=== PATIENT | female | born 1990 | race Caucasian/White ===

== ENCOUNTER 2018-05-20 08:08 | Emergency (ER) | payer OTHER ==
[~2018-05-20] VITALS: Ht 157.5 cm; Wt 127.0 kg
[~2018-05-20 08:08] MED LIST: AMOX250 PO; AMOX500 PO; BCP; CEPH500 PO; CETI5 PO; CODACE30 PO; DICLEGIS DR 101 EACH PO; DIPH50 PO; ESCI10; EXCEDRIN; HYDACE5 PO; HYDPAM25; IBUPROFEN; LORA1 PO; MECL12.5 PO; NAPR500 PO; Norco 5-325 Ta1 EACH PO; OMEPRAZOLE MAGN20 MG PO; Omeprazole20 M1 PO; PARO12.5; PENVK500 PO; PHENA200 PO; PRENATAL VITAM1 EAC2 PO; PROM25 PO; Permethrin60 GM TP; Pseudoephedrine30 MG PO; RANI150; RANI150 PO; RXAMOX500 PO; RXNAPNA550 PO; RXPHEN200 PO; RXSULTRIDS PO; SERT100 PO; SERT50 PO; SULTRIDS PO; TRAZ50; TYLECOD3 PO; Tylenol325 MG PO; VARE1; Zofran Odt4 MG SL
[2018-05-20] MEDS ORDERED: HYDHCL25 PO (08:21)
[2018-05-20] MEDS ORDERED: BACL10 PO (08:22)
[2018-05-20] MEDS ORDERED: ORACONB PO (08:23)
[2018-05-20] MEDS ORDERED: MELO7.5 PO (08:24)
[2018-05-20] MEDS ORDERED: Prozac20 MG PO (08:26)
[2018-05-20] MEDS ORDERED: Ultram50 MG PO (08:40)
[2018-05-20] MEDS ORDERED: Veetids 500500 MG PO (08:40)
== END 2018-05-20 09:10 | disposition home or self-care (01) ==
LOC: ER 08:08
DX: K02.9 Dental caries, unspecified (principal); F17.200 Nicotine dependence, unspecified, uncomplicated
CPT/HCPCS: 99282

== ENCOUNTER → 2018-08-18 | Outpatient (CLI) | payer OTHER ==
[~2018-08-18] MED LIST changes: +BACL10 PO; +HYDHCL25 PO; +MELO7.5 PO; +ORACONB PO; +Prozac20 MG PO; +Ultram50 MG PO; +Veetids 500500 MG PO
[2018-08-18 17:11] LABS: Bilirubin, Urine Neg (Neg); Blood, Urine Neg (Neg); Glucose Qualitative, Urine Neg (Neg); Ketones, Urine Neg (Neg); Leukocyte Esterase, Urine Neg (Neg); Nitrite, Urine Neg (Neg); Protein, Urine 1+ (Neg); Urobilinogen, Urine NORM (Normal)
[2018-08-18 17:23] LABS: U Amphetamine Screen Not Detected; U Barbituate Screen Not Detected; U Benzodiazapine Screen Not Detected; U Buprenorphine Screen Not Detected; U Cannabinoids Screen Not Detected; U Cocaine Screen Not Detected; U Methadone Screen Not Detected; U Methamphetamine Screen Not Detected; U Opiates Screen Not Detected; U Oxycodone Screen Not Detected; U Phencyclidine Screen Not Detected; U Propoxyphene Screen Not Detected
[2018-08-18 17:26] LABS: Appearance, Urine Clear (Clear); Color, Urine Yellow (P-Yellow)
== END | disposition home or self-care (01) ==
LOC: LAB SHORT 16:38 → LAB 16:38
PROVIDERS: Obstetrics & Gynecology
DX: O09.90 Supervision of high risk pregnancy, unspecified, unspecified trimester (principal)
CPT/HCPCS: 87086

== ENCOUNTER 2018-08-21 19:18 | Emergency (ER) | payer OTHER ==
[~2018-08-21] VITALS: Ht 157.5 cm; Wt 127.0 kg
[2018-08-21 19:49] LABS: BASOPHILS ABSOLUTE AUTO 0.03 K/mm3 (0.00-0.23); BASOPHILS PERCENT AUTO 0 % (0-2); EOSINOPHILS ABSOLUTE AUTO 0.07 K/mm3 (0.00-0.68); EOSINOPHILS PERCENT AUTO 1 % (0-6); Hematocrit 43.1 % (33.0-51.0); Hemoglobin 13.8 g/dL (11.5-16.0); IMMATURE GRAN ABSOLUTE AUTO 0.08 K/mm3 (0.00-0.10); IMMATURE GRAN PERCENT AUTO 1 % (0-1); LYMPHOCYTES ABSOLUTE AUTO 3.54 K/mm3 (0.84-5.20); LYMPHOCYTES PERCENT AUTO 26 % (21-46); MONOCYTES ABSOLUTE AUTO 0.72 K/mm3 (0.16-1.47); MONOCYTES PERCENT AUTO 5 % (4-13); Mean Corpuscular HGB 28.7 pg (26.0-34.0); Mean Corpuscular Volume 90 fL (80-100); Mean Platelet Volume 9.4 fL (9.1-12.4); NEUTROPHILS ABSOLUTE AUTO 9.43 K/mm3 (1.96-9.15); NEUTROPHILS PERCENT AUTO 68 % (41-73); Platelet Count 275 K/mm3 (150-400); RDW Coefficient Variation 13.2 % (11.7-14.2); RDW Standard Deviation 43.2 fL (35.1-46.3); Red Blood Cell Count 4.81 M/mm3 (3.80-5.20); White Blood Cell Count 13.87 K/mm3 (4.00-11.30)
[2018-08-21 20:18] LABS: Alanine Aminotransfer (ALT/SGP 19 U/L (12-78); Albumin, Blood 3.3 g/dL (3.4-5.0); Albumin/Globulin Ratio 0.7 (0.8-1.8); Alk Phos 59 U/L (50-136); Anion Gap 8 mmol/L (6-16); Aspartate Aminotrans (AST/SGOT 18 U/L (12-37); Bilirubin, Total 0.1 mg/dL (0.1-1.0); Blood Urea Nitrogen 8 mg/dL (8-24); CO2, Blood 22 mmol/L (21-32); Calcium, Blood 9.1 mg/dL (8.5-10.1); Chloride, Blood 105 mmol/L (98-108); Globulin, Blood 4.5 g/dL (2.2-4.0); Glomerular Filtration Rate >60 (60-); Glucose, Blood 78 mg/dL (70-99); Potassium, Blood 3.5 mmol/L (3.5-5.5); Sodium, Blood 135 mmol/L (136-145); Total Protein, Blood 7.8 g/dL (6.4-8.2)
[2018-08-21 20:30] LABS: Beta HCG, Quantitative, Serum 124159 mIU/mL (0-3)
== END 2018-08-21 22:15 | disposition home or self-care (01) ==
LOC: ER 19:18
PROVIDERS: Physician Assistant
DX: O20.0 Threatened abortion (principal); Z3A.08 8 weeks gestation of pregnancy; Z88.2 Allergy status to sulfonamides; Z88.1 Allergy status to other antibiotic agents; Z88.5 Allergy status to narcotic agent; Z88.8 Allergy status to other drugs, medicaments and biological substances; Z79.899 Other long term (current) drug therapy; O99.331 Smoking (tobacco) complicating pregnancy, first trimester; F17.200 Nicotine dependence, unspecified, uncomplicated
CPT/HCPCS: 36415; 76801; 80053; 84702; 85025; 99284-25

== ENCOUNTER 2019-03-10 15:29 | Inpatient (IN) | payer OTHER ==
[~2019-03-10] VITALS: Ht 157.5 cm; Wt 148.3 kg
[2019-03-10] MEDS ORDERED: EXPECTA PRENAT1 EACH (15:51)
[2019-03-10] MEDS ORDERED: NITR100CA (15:51)
[2019-03-10] MEDS ORDERED: UNISOM25 MG (15:51)
[2019-03-10] MEDS ORDERED: HEALTHY HEART1 EACH (15:52)
[2019-03-10 17:08] LABS: BASOPHILS ABSOLUTE AUTO 0.03 K/mm3 (0.00-0.23); BASOPHILS PERCENT AUTO 0 % (0-2); EOSINOPHILS ABSOLUTE AUTO 0.08 K/mm3 (0.00-0.68); EOSINOPHILS PERCENT AUTO 1 % (0-6); Hematocrit 35.4 % (33.0-51.0); Hemoglobin 11.3 g/dL (11.5-16.0); IMMATURE GRAN ABSOLUTE AUTO 0.06 K/mm3 (0.00-0.10); IMMATURE GRAN PERCENT AUTO 1 % (0-1); LYMPHOCYTES ABSOLUTE AUTO 2.68 K/mm3 (0.84-5.20); LYMPHOCYTES PERCENT AUTO 29 % (21-46); MONOCYTES ABSOLUTE AUTO 0.58 K/mm3 (0.16-1.47); MONOCYTES PERCENT AUTO 6 % (4-13); Mean Corpuscular HGB Conc 31.9 g/dL (31.5-36.5); Mean Corpuscular Volume 88 fL (80-100); Mean Platelet Volume 11.7 fL (9.1-12.4); NEUTROPHILS ABSOLUTE AUTO 5.85 K/mm3 (1.96-9.15); NEUTROPHILS PERCENT AUTO 63 % (41-73); Platelet Count 177 K/mm3 (150-400); RDW Coefficient Variation 13.9 % (11.7-14.2); RDW Standard Deviation 43.8 fL (35.1-46.3); Red Blood Cell Count 4.04 M/mm3 (3.80-5.20); White Blood Cell Count 9.28 K/mm3 (4.00-11.30)
[2019-03-10 17:30] LABS: Alanine Aminotransfer (ALT/SGP 16 U/L (12-78); Albumin, Blood 2.1 g/dL (3.4-5.0); Albumin/Globulin Ratio 0.6 (0.8-1.8); Alk Phos 100 U/L (50-136); Amylase, Blood 50 U/L (25-115); Anion Gap 5 mmol/L (6-16); Aspartate Aminotrans (AST/SGOT 18 U/L (12-37); Bilirubin, Direct <0.1 mg/dL (0.0-0.3); Bilirubin, Indirect Unable to Calculate mg/dL (0.1-0.7); Bilirubin, Total 0.2 mg/dL (0.1-1.0); Blood Urea Nitrogen 9 mg/dL (8-24); Bun/Creatinine Ratio 11.7 (12.0-20.0); CO2, Blood 23 mmol/L (21-32); Calcium, Blood 8.6 mg/dL (8.5-10.1); Chloride, Blood 111 mmol/L (98-108); Creatinine, Blood 0.77 mg/dL (0.40-1.00); Globulin, Blood 3.8 g/dL (2.2-4.0); Glomerular Filtration Rate >60 (60-); Glucose, Blood 86 mg/dL (70-99); Potassium, Blood 3.9 mmol/L (3.5-5.5); Sodium, Blood 139 mmol/L (136-145); Total Protein, Blood 5.9 g/dL (6.4-8.2)
[2019-03-10 17:31] LABS: International Normalized Ratio 0.87; Prothrombin Time Results 9.3 Sec (9.7-11.5)
--- NOTE | 2019-03-10 18:10 | NUR ---
Assumed care from Grabiel Macias RN. Pt up to BR.
[2019-03-10 18:26] LABS: Protein, Urine Random 140.2 mg/dL (0.0-11.9)
[2019-03-10 18:31] LABS: Protein/Creat Ratio, Ur Random 0.4
--- NOTE | 2019-03-10 22:15 | NUR ---
Assessment Note: Expiratory wheezing in right side
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
--- NOTE | 2019-03-11 14:00 | NUR ---
MD IN UNIT, UPDATED ABOUT NST AND 10X10 ACCELS UNABLE TO GET 15X15 DIFFICULT TO MONITOR DUE TO BMI. VERY ACTIVE FETUS, OK WITH NST RESULTS.
[2019-03-11 17:09] LABS: Protein, Urine Quantitative 29.1 mg/dL (0.0-11.9)
[2019-03-11 18:04] LABS: U Amphetamine Screen Not Detected; U Barbituate Screen Not Detected; U Benzodiazapine Screen Not Detected; U Buprenorphine Screen Not Detected; U Cannabinoids Screen Not Detected; U Cocaine Screen Not Detected; U Methadone Screen Not Detected; U Methamphetamine Screen Not Detected; U Opiates Screen Not Detected; U Oxycodone Screen Not Detected; U Phencyclidine Screen Not Detected; U Propoxyphene Screen Not Detected
--- NOTE | 2019-03-11 20:06 | NUR ---
@ 2410 let pt know results of 24 hour urine. Cont bedrest. Cont to measure I&O. repor tto oncoming shift, no acute changes.
--- NOTE | 2019-03-12 07:30 | NUR ---
PT WAKING UP TO EAT BREAKFAST. SHE WILL CALL WHEN SHE IS FINISHED SO I CAN ASSESS HER.
--- NOTE | 2019-03-12 10:00 | NUR ---
NUPUR ROBERT CNM AT BEDSIDE.
--- NOTE | 2019-03-12 18:35 | NUR ---
REPORT TO ONCOMING SHIFT
--- NOTE | 2019-03-13 12:09 | NUR ---
REPORT TO NEREIDA BETANCOURT RN
--- NOTE | 2019-03-13 14:28 | NUR ---
ASSSUMED CARE AT 1200. PT UP TO SHOWER, LINEN CHANGED. OFFERED PT TO GO OUTSIDE IN WHEELCHAIR. PT SAID MAYBE AFTER HER AUNT COMES IN. BP HIGH OF RADICAL CUFF, HAD PT REST AND RECHECK WITH LARGE CUFF. RECHECKED AT 1235, VSS. SNACK GIVEN. VISITING WITH HER AUNT, PT DOESN'T HAVE ALOT OF SUPPORT. HER MOM AND SISTER HAVE BOTH .
--- NOTE | 2019-03-13 18:35 | NUR ---
PT REPORTS HAVING A UTI 2 WEEKS AGO AND WAS BEING TREATED UPON ARRIVAL TO UNIT. HAD 9 DAYS OF MARCOBID, BUT THINKS THE UTI IS COMING BACK. WILL SEND A UA AND CULTURE. REPORT TO ONCOMING SHIFT, NO ACUTE CHNAGES.
[2019-03-13 18:50] LABS: Source, Urine Clean Catch
[2019-03-13 18:54] LABS: Bilirubin, Urine Neg (Neg); Blood, Urine Neg (Neg); Glucose Qualitative, Urine Neg (Neg); Ketones, Urine Neg (Neg); Leukocyte Esterase, Urine Neg (Neg); Nitrite, Urine Neg (Neg); Protein, Urine 2+ (Neg); Urobilinogen, Urine NORM (Normal)
[2019-03-13 18:58] LABS: Appearance, Urine Clear (Clear); Color, Urine Yellow (P-Yellow)
[2019-03-13 19:04] LABS: Bacteria Mod /hpf; Red Blood Cells, Urine 0-2 /hpf (0-2); Squamous Epithelial Cells Few /hpf (Few); White Blood Cells, Urine 0-2 /hpf (0-5)
[2019-03-13 19:05] LABS: Mucus Light (0-Heavy)
[2019-03-14 04:50] LABS: BASOPHILS ABSOLUTE AUTO 0.04 K/mm3 (0.00-0.23); BASOPHILS PERCENT AUTO 0 % (0-2); EOSINOPHILS ABSOLUTE AUTO 0.13 K/mm3 (0.00-0.68); EOSINOPHILS PERCENT AUTO 1 % (0-6); Hematocrit 38.2 % (33.0-51.0); Hemoglobin 12.1 g/dL (11.5-16.0); IMMATURE GRAN ABSOLUTE AUTO 0.05 K/mm3 (0.00-0.10); IMMATURE GRAN PERCENT AUTO 1 % (0-1); LYMPHOCYTES ABSOLUTE AUTO 3.61 K/mm3 (0.84-5.20); LYMPHOCYTES PERCENT AUTO 34 % (21-46); MONOCYTES ABSOLUTE AUTO 0.78 K/mm3 (0.16-1.47); MONOCYTES PERCENT AUTO 7 % (4-13); Mean Corpuscular HGB 27.5 pg (26.0-34.0); Mean Corpuscular HGB Conc 31.7 g/dL (31.5-36.5); Mean Corpuscular Volume 87 fL (80-100); Mean Platelet Volume 12.2 fL (9.1-12.4); NEUTROPHILS ABSOLUTE AUTO 6.12 K/mm3 (1.96-9.15); NEUTROPHILS PERCENT AUTO 57 % (41-73); Platelet Count 165 K/mm3 (150-400); RDW Standard Deviation 44.1 fL (35.1-46.3); White Blood Cell Count 10.73 K/mm3 (4.00-11.30)
[2019-03-14 05:16] LABS: Alanine Aminotransfer (ALT/SGP 15 U/L (12-78); Albumin, Blood 2.1 g/dL (3.4-5.0); Albumin/Globulin Ratio 0.5 (0.8-1.8); Alk Phos 111 U/L (50-136); Anion Gap 7 mmol/L (6-16); Aspartate Aminotrans (AST/SGOT 21 U/L (12-37); Bilirubin, Total <0.1 mg/dL (0.1-1.0); Blood Urea Nitrogen 11 mg/dL (8-24); Bun/Creatinine Ratio 14.2 (12.0-20.0); CO2, Blood 24 mmol/L (21-32); Calcium, Blood 9.3 mg/dL (8.5-10.1); Chloride, Blood 110 mmol/L (98-108); Creatinine, Blood 0.78 mg/dL (0.40-1.00); Globulin, Blood 4.1 g/dL (2.2-4.0); Glomerular Filtration Rate >60 (60-); Glucose, Blood 109 mg/dL (70-99); Potassium, Blood 4.2 mmol/L (3.5-5.5); Sodium, Blood 141 mmol/L (136-145); Total Protein, Blood 6.2 g/dL (6.4-8.2)
--- NOTE | 2019-03-14 08:22 | NUR ---
PAS PLACED ON PATIENT
--- NOTE | 2019-03-14 12:30 | NUR ---
INCENTIVE SPIROMETER PROVIDED INCENTIVE SPIROMETER TO PATIENT, EDUCATED ON USE, PATIETN VERBALIZES UNDERSTANDING. ENCOURAGED PATIENT TO USE EVERY HOUR WHILE AWAKE
--- NOTE | 2019-03-14 16:45 | NUR ---
PATIENT UP SHOWERED WITH SURGICAL SCRUB TO ENITRE BODY BELOW NECK LEVEL, INCISION SITE SCRUB FOR 3 MINUTES. LINENS CHANGED, AND PAS REAPPLIED
[2019-03-15 05:49] LABS: Hematocrit 37.5 % (33.0-51.0); Hemoglobin 11.8 g/dL (11.5-16.0); Mean Corpuscular HGB 27.3 pg (26.0-34.0); Mean Corpuscular HGB Conc 31.5 g/dL (31.5-36.5); Mean Corpuscular Volume 87 fL (80-100); Mean Platelet Volume 11.9 fL (9.1-12.4); Platelet Count 176 K/mm3 (150-400); RDW Coefficient Variation 14.1 % (11.7-14.2); RDW Standard Deviation 44.1 fL (35.1-46.3); Red Blood Cell Count 4.33 M/mm3 (3.80-5.20); White Blood Cell Count 11.82 K/mm3 (4.00-11.30)
[2019-03-15 06:06] LABS: Alanine Aminotransfer (ALT/SGP 15 U/L (12-78); Albumin, Blood 2.1 g/dL (3.4-5.0); Albumin/Globulin Ratio 0.5 (0.8-1.8); Alk Phos 106 U/L (50-136); Anion Gap 7 mmol/L (6-16); Aspartate Aminotrans (AST/SGOT 17 U/L (12-37); Bilirubin, Total 0.1 mg/dL (0.1-1.0); Blood Urea Nitrogen 12 mg/dL (8-24); Bun/Creatinine Ratio 18.1 (12.0-20.0); CO2, Blood 23 mmol/L (21-32); Calcium, Blood 9.1 mg/dL (8.5-10.1); Chloride, Blood 109 mmol/L (98-108); Creatinine, Blood 0.66 mg/dL (0.40-1.00); Globulin, Blood 4.1 g/dL (2.2-4.0); Glomerular Filtration Rate >60 (60-); Glucose, Blood 106 mg/dL (70-99); Potassium, Blood 4.2 mmol/L (3.5-5.5); Sodium, Blood 139 mmol/L (136-145); Total Protein, Blood 6.2 g/dL (6.4-8.2)
[2019-03-15 06:13] LABS: BASOPHILS PERCENT MAN 0 % (0-2); EOSINOPHILS PERCENT MAN 0 % (0-6); LYMPHOCYTES ABSOLUTE MAN 3.19 K/mm3 (0.84-5.20); LYMPHOCYTES PERCENT MAN 27 % (21-46); MONOCYTES ABSOLUTE MAN 0.59 K/mm3 (0.16-1.47); MONOCYTES PERCENT MAN 5 % (4-13); NEUTROPHILS ABSOLUTE MAN 8.03 K/mm3 (1.96-9.15); SEG NEUTROPHILS PERCENT MAN 68 % (41-73); TOTAL CELLS COUNTED 100
[2019-03-15 08:55] LABS: PCO2 Cord - Arterial 78.7 mmHg (40-50); pH Cord - Arterial 7.17 (7.28-7.35)
[2019-03-15 08:56] LABS: PO2 Cord - Venous 15.1 mmHg (28-32); pH Umbilical Cord - Venous 7.23 (7.26-7.35)
--- NOTE | 2019-03-15 08:57 | NUR ---
03/15/19 0857 Nicci Neil VIABLE FEMALE AT 0842 WEIGHING 10-2 (4590 G) CORD GASES SENT WITH RT, CORD BLOOD COLLECTED AND SENT WITH HAL DAVISON AND CORD SEGEMENT SAVED FOR DRUG SCREEN. PLACENTA WEIGHED 845 GRAMS. APGARS 9/9.
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
[2019-03-16 05:36] LABS: BASOPHILS ABSOLUTE AUTO 0.03 K/mm3 (0.00-0.23); BASOPHILS PERCENT AUTO 0 % (0-2); EOSINOPHILS ABSOLUTE AUTO 0.02 K/mm3 (0.00-0.68); EOSINOPHILS PERCENT AUTO 0 % (0-6); Hematocrit 33.3 % (33.0-51.0); Hemoglobin 10.5 g/dL (11.5-16.0); IMMATURE GRAN ABSOLUTE AUTO 0.09 K/mm3 (0.00-0.10); IMMATURE GRAN PERCENT AUTO 1 % (0-1); LYMPHOCYTES ABSOLUTE AUTO 3.14 K/mm3 (0.84-5.20); LYMPHOCYTES PERCENT AUTO 23 % (21-46); MONOCYTES ABSOLUTE AUTO 0.69 K/mm3 (0.16-1.47); MONOCYTES PERCENT AUTO 5 % (4-13); Mean Corpuscular HGB 27.9 pg (26.0-34.0); Mean Corpuscular HGB Conc 31.5 g/dL (31.5-36.5); Mean Corpuscular Volume 88 fL (80-100); Mean Platelet Volume 11.3 fL (9.1-12.4); NEUTROPHILS ABSOLUTE AUTO 9.63 K/mm3 (1.96-9.15); NEUTROPHILS PERCENT AUTO 71 % (41-73); Platelet Count 166 K/mm3 (150-400); RDW Coefficient Variation 14.1 % (11.7-14.2); RDW Standard Deviation 45.1 fL (35.1-46.3); Red Blood Cell Count 3.77 M/mm3 (3.80-5.20)
[2019-03-17] MEDS ORDERED: Percocet 5-3251 EACH (11:34)
[2019-03-17] MEDS ORDERED: IBUP800 PO (11:34)
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
== END 2019-03-17 12:00 | disposition home or self-care (01) | DRG 785 ==
LOC: OBS 15:29 → BC 15:43
PROVIDERS: Nurse Practitioner Obstetrics & Gynecology; ADMIT Obstetrics & Gynecology
PROC: 6A550ZT Pheresis of Cord Blood Stem Cells, Single (ICD-10-PCS; 2019-03-15)
PROC: 10D00Z1 Extraction of Products of Conception, Low, Open Approach (ICD-10-PCS; principal; 2019-03-15 07:30)
PROC: 0UB70ZZ Excision of Bilateral Fallopian Tubes, Open Approach (ICD-10-PCS; 2019-03-15 07:30)
DX: O14.94 Unspecified pre-eclampsia, complicating childbirth (principal); O99.613 Diseases of the digestive system complicating pregnancy, third trimester; K21.9 Gastro-esophageal reflux disease without esophagitis; O99.214 Obesity complicating childbirth; O34.211 Maternal care for low transverse scar from previous cesarean delivery; O69.81X0 Labor and delivery complicated by cord around neck, without compression, not applicable or unspecified; Z3A.38 38 weeks gestation of pregnancy; Z37.0 Single live birth; E66.01 Morbid (severe) obesity due to excess calories
CPT/HCPCS: 36415; 59025; 80053; 81001; 81050; 82150; 82248; 82570; 82803; 83690; 84156; 85007; 85025; 85027; 85610; 85730; 86850; 86900; 86901; 87086; 88302; 94640; 94760; A9270; J0690; J1100; J1885; J2001; J2250; J2370; J2590; J2704; J2765; J3010; J7120

== ENCOUNTER 2019-12-01 18:41 | Emergency (ER) | payer OTHER ==
[~2019-12-01] VITALS: Ht 157.5 cm; Wt 128.8 kg
[~2019-12-01 18:41] MED LIST changes: +EXPECTA PRENAT1 EACH; +HEALTHY HEART1 EACH; +IBUP800 PO; +NITR100CA; +Percocet 5-3251 EACH; +UNISOM25 MG
[2019-12-01] MEDS ORDERED: METPRE4DP PO (21:48)
[2019-12-01] MEDS ORDERED: ERYT1OIN RIGHTEYE (21:48)
[2019-12-01] MEDS ORDERED: Percocet 5-3251 EACH PO (21:48)
== END 2019-12-01 21:57 | disposition home or self-care (01) ==
LOC: ER 18:41
DX: H10.021 Other mucopurulent conjunctivitis, right eye (principal); M54.6 Pain in thoracic spine; M41.9 Scoliosis, unspecified; Z88.2 Allergy status to sulfonamides; Z88.5 Allergy status to narcotic agent; Z88.8 Allergy status to other drugs, medicaments and biological substances; Z79.899 Other long term (current) drug therapy; Z87.891 Personal history of nicotine dependence
CPT/HCPCS: 99283; A9270; J7512

== ENCOUNTER 2020-03-25 18:41 | Emergency (ER) | payer OTHER ==
[~2020-03-25] VITALS: Ht 157.5 cm; Wt 136.1 kg
[~2020-03-25 18:41] MED LIST changes: +ERYT1OIN RIGHTEYE; +METPRE4DP PO; +Percocet 5-3251 EACH PO
[2020-03-25] MEDS ORDERED: Prednisone20 MG PO (20:19)
[2020-03-25] MEDS ORDERED: KETO10 PO (20:19)
== END 2020-03-25 20:40 | disposition home or self-care (01) ==
LOC: ER 18:41
DX: M77.8 Other enthesopathies, not elsewhere classified (principal); M70.812 Other soft tissue disorders related to use, overuse and pressure, left shoulder; Z88.8 Allergy status to other drugs, medicaments and biological substances; Z88.2 Allergy status to sulfonamides; Z88.1 Allergy status to other antibiotic agents; Z79.899 Other long term (current) drug therapy; Z87.891 Personal history of nicotine dependence; Z88.5 Allergy status to narcotic agent
CPT/HCPCS: 99283; A9270; J7512

== ENCOUNTER 2020-05-17 10:49 | Emergency (ER) | payer OTHER ==
[~2020-05-17] VITALS: Ht 157.5 cm; Wt 136.1 kg
[~2020-05-17 10:49] MED LIST changes: +KETO10 PO; +Prednisone20 MG PO
== END 2020-05-17 12:30 | disposition left against medical advice (07) ==
LOC: ER 10:49
DX: Z53.21 Procedure and treatment not carried out due to patient leaving prior to being seen by health care provider (principal)

== ENCOUNTER → 2020-06-07 | Outpatient (CLI) | payer OTHER | END | disposition home or self-care (01) | LOC: LAB SHORT 10:59 → PLD 10:59 | DX: N39.0 Urinary tract infection, site not specified (principal) | CPT/HCPCS: 87086 ==

== ENCOUNTER → 2021-01-04 | Outpatient (CLI) | payer OTHER | END | disposition home or self-care (01) | LOC: LAB 14:50 → LAB SHORT 14:50 | DX: L02.413 Cutaneous abscess of right upper limb (principal) | CPT/HCPCS: 87070; 87075; 87077; 87147; 87186; 87205 ==

== ENCOUNTER → 2021-10-07 | Outpatient (CLI) | payer OTHER ==
[2021-10-09 15:09] LABS: CHLAMYDIA BY NAA Negative (Negative); GONOCOCCUS BY NAA Negative (Negative); TRICH VAG BY NAA Negative (Negative)
== END | disposition home or self-care (01) ==
LOC: LAB SHORT 16:37 → LAB 16:37
PROVIDERS: Physician Assistant
DX: R10.2 Pelvic and perineal pain (principal)
CPT/HCPCS: 87070; 87205; 87491; 87591; 87661

== ENCOUNTER → 2022-06-20 | Outpatient (CLI) | payer OTHER ==
[2022-06-23 09:02] LABS: RPR Reactive (Nonreactive)
== END | disposition home or self-care (01) ==
LOC: LAB SHORT 14:41
PROVIDERS: Registered Nurse Community Health
DX: Z11.3 Encounter for screening for infections with a predominantly sexual mode of transmission (principal); Z20.2 Contact with and (suspected) exposure to infections with a predominantly sexual mode of transmission
CPT/HCPCS: 86592; 86593; 86780

== ENCOUNTER → 2022-08-12 | Outpatient (CLI) | payer OTHER ==
[2022-08-13 13:25] LABS: RPR Reactive (Nonreactive)
[2022-08-13 13:30] LABS: Candida species (DNA Probe) Positive (NEGATIVE); G. vaginalis (DNA Probe) Negative (NEGATIVE); T. vaginalis (DNA Probe) Positive (NEGATIVE)
[2022-08-14 07:11] LABS: HBSAG SCREEN Negative (Negative); HCV ANTIBODY Non Reactive (Non Reactive); HIV AB/P24 AG SCREEN Non Reactive (Non Reactive)
[2022-08-15 17:12] LABS: CHLAMYDIA BY NAA Negative (Negative); GONOCOCCUS BY NAA Negative (Negative); TRICH VAG BY NAA Positive (Negative)
== END | disposition home or self-care (01) ==
LOC: LAB SHORT 17:51 → LAB 17:51
PROVIDERS: Registered Nurse Community Health
DX: Z11.3 Encounter for screening for infections with a predominantly sexual mode of transmission (principal); N89.8 Other specified noninflammatory disorders of vagina; Z20.2 Contact with and (suspected) exposure to infections with a predominantly sexual mode of transmission
CPT/HCPCS: 86592; 86593; 87389; 87480; 87510; 87660

== ENCOUNTER → 2022-09-24 | Outpatient (CLI) | payer OTHER | END | disposition home or self-care (01) | LOC: LAB SHORT 18:24 → LAB 18:24 | DX: N39.0 Urinary tract infection, site not specified (principal) | CPT/HCPCS: 87086 ==

== ENCOUNTER → 2023-04-29 | Outpatient (CLI) | payer OTHER ==
[2023-05-05 20:15] LABS: OVA AND PARASITE,FECAL INTERP Negative (Negative)
== END ==
LOC: LAB 18:00 → LAB SHORT 18:00
PROVIDERS: Student in an Organized Health Care Education/Training Program
DX: R19.7 Diarrhea, unspecified (principal)
CPT/HCPCS: 87177; 87209

== ENCOUNTER → 2023-12-23 | Outpatient (CLI) | payer OTHER | LOC: LAB 12:57 → LAB SHORT 12:57 | DX: Z86.32 Personal history of gestational diabetes (principal) | CPT/HCPCS: 83036 ==

== ENCOUNTER 2024-08-24 14:36 | Emergency (ER) | payer OTHER ==
[~2024-08-24] VITALS: Ht 160 cm; Wt 103.9 kg
[2024-08-24 15:32] LABS: BASOPHILS ABSOLUTE AUTO 0.03 K/mm3 (0.00-0.23); BASOPHILS PERCENT AUTO 0 % (0-2); EOSINOPHILS ABSOLUTE AUTO 0.15 K/mm3 (0.00-0.68); EOSINOPHILS PERCENT AUTO 2 % (0-6); Hematocrit 40.6 % (33.0-51.0); Hemoglobin 13.2 g/dL (11.5-16.0); IMMATURE GRAN ABSOLUTE AUTO 0.07 K/mm3 (0.00-0.10); IMMATURE GRAN PERCENT AUTO 1 % (0-1); LYMPHOCYTES ABSOLUTE AUTO 4.13 K/mm3 (0.84-5.20); LYMPHOCYTES PERCENT AUTO 40 % (21-46); MONOCYTES ABSOLUTE AUTO 0.57 K/mm3 (0.16-1.47); MONOCYTES PERCENT AUTO 6 % (4-13); Mean Corpuscular HGB 27.7 pg (26.0-34.0); Mean Corpuscular HGB Conc 32.5 g/dL (31.5-36.5); Mean Corpuscular Volume 85 fL (80-100); Mean Platelet Volume 9.5 fL (9.1-12.4); NEUTROPHILS ABSOLUTE AUTO 5.29 K/mm3 (1.96-9.15); NEUTROPHILS PERCENT AUTO 52 % (41-73); Platelet Count 268 K/mm3 (150-400); RDW Coefficient Variation 13.4 % (11.7-14.2); RDW Standard Deviation 41.5 fL (35.1-46.3); Red Blood Cell Count 4.76 M/mm3 (3.80-5.20); White Blood Cell Count 10.24 K/mm3 (4.00-11.30)
[2024-08-24 16:05] LABS: Albumin, Blood 3.4 g/dL (3.4-5.0); Albumin/Globulin Ratio 0.8 (0.8-1.8); Bilirubin, Total 0.2 mg/dL (0.1-1.0); Bun/Creatinine Ratio 15.3 (12.0-20.0); Calcium, Blood 9.2 mg/dL (8.5-10.1); Creatinine, Blood 0.59 mg/dL (0.40-1.00); Globulin, Blood 4.2 g/dL (2.2-4.0); Potassium, Blood 3.7 mmol/L (3.5-5.5); Total Protein, Blood 7.6 g/dL (6.4-8.2)
[2024-08-24 18:38] VITALS: BP 138/84
== END 2024-08-24 18:38 | disposition home or self-care (01) ==
LOC: ER 14:36
PROVIDERS: Student in an Organized Health Care Education/Training Program
DX: R07.89 Other chest pain (principal); Z87.891 Personal history of nicotine dependence; Z88.2 Allergy status to sulfonamides; Z88.5 Allergy status to narcotic agent; Z88.1 Allergy status to other antibiotic agents; Z88.8 Allergy status to other drugs, medicaments and biological substances; Z79.899 Other long term (current) drug therapy; Z59.89 Other problems related to housing and economic circumstances
CPT/HCPCS: 71046; 80053; 83690; 83880; 84484; 84703; 85025; 93005; 93010; 99285-25

== ENCOUNTER → 2024-11-12 | Outpatient (CLI) | payer OTHER ==
[2024-11-13 05:11] LABS: Campylobacter Sp Not Detected (NOT DETECT); E. Coli O157 Not Detected (NOT DETECT); Enteroaggregative E. coli-EAEC Not Detected (NOT DETECT); Enteropathogenic E. coli-EPEC Not Detected (NOT DETECT); Enterotoxigenic E. coli-ETEC Not Detected (NOT DETECT); Salmonella Sp Not Detected (NOT DETECT); Shiga Toxin-prod E. coli-STEC Not Detected (NOT DETECT); Shigella/Enteroin E. coli-EIEC Not Detected (NOT DETECT); Vibrio Sp Not Detected (NOT DETECT)
== END | disposition home or self-care (01) ==
LOC: LAB SHORT 17:52 → LAB 17:52
PROVIDERS: Nurse Practitioner Family
DX: R19.7 Diarrhea, unspecified (principal)
CPT/HCPCS: 87324; 87507